=== PATIENT | male | born 1985 | race Two or more races ===

== ENCOUNTER 2017-05-14 07:00 | Day surgery (SDC) | payer OTHER, MEDICAID ==
[~2017-05-14] VITALS: Ht 188 cm; Wt 147.4 kg
[~2017-05-14 07:00] MED LIST: CANA100T OR; LOSA50TA6 PO; METF-370 PO; MONT4GRA PO
[2017-05-14] MEDS ORDERED: IODIXANOL 320MG/ML 100ML BTL IV ONE (07:06)
[2017-05-14] MEDS ORDERED: LIDOCAINE 2%HCL (LOCAL ANESTH.) INJ 20ML MDV ONE (07:06)
[2017-05-14] MEDS ORDERED: HEPARIN IN NS 1000Units/500mL 1,500 ML ONE (07:06)
[2017-05-14] MEDS ORDERED: SODIUM CHL 0.9% 0 ML ONE (07:50)
[2017-05-14] MEDS ORDERED: fentaNYL CITRATE 100 MCG/2 ML VL ONE (07:50)
[2017-05-14] MEDS ORDERED: MIDAZOLAM HCL 1MG/1ML-2 ML VIAL ONE (07:50)
[2017-05-14] MEDS ORDERED: ANGIOMAX 250 MG VIAL IV ONE (07:50)
[2017-05-14] MEDS ORDERED: VERAPAMIL 2.5MG/ML INJ 2ML VIAL IV ONE (07:51)
[2017-05-14] MEDS ORDERED: IOHEXOL 350 MG/ML 100ML IJ ONE (08:15)
[2017-05-14] MEDS ORDERED: HEPARIN SODIUM (PORCINE) 5000 UNITS/ML 1ML VIAL ONE (08:18)
== END 2017-05-14 10:20 | disposition home or self-care (01) ==
LOC: CATH 07:00
PROVIDERS: ATTEND Internal Medicine
DX: R07.9 Chest pain, unspecified (principal); I10 Essential (primary) hypertension; E11.9 Type 2 diabetes mellitus without complications
CPT/HCPCS: 93458; C1769; C1894; J1644; J2250; J3010; J7030; Q9967; 99152; 99153